=== PATIENT | female | born 1970 | race Hispanic/Latino ===

== ENCOUNTER 2016-09-11 09:52 | Emergency (ER) | payer OTHER ==
[2016-09-11 10:39] LABS: Basophils % (Auto) 0.5 % (0.0-1.8); Eosinophils % (Auto) 2.1 % (0.0-4.3); Hematocrit 38.3 % (30.3-42.9); Hemoglobin 13.1 gm/dl (10.1-14.3); Mean Corpuscular HGB Conc 34 % (30-34); Mean Corpuscular Hemoglobin 27 pg (28-32); Mean Corpuscular Volume 80 fl (79-97); Platelet Count 288 K/mm3 (140-440); Red Cell Distribution Width 13.3 % (13.2-15.2); White Blood Count 6.5 K/mm3 (4.5-11.0)
[2016-09-11 10:52] LABS: Alanine Aminotransferase 10 units/L (7-56); Albumin 3.8 g/dL (3.9-5); Albumin/Globulin Ratio 1.5 %; Alkaline Phosphatase 58 units/L (35-129); Bilirubin,Total 0.5 mg/dL (0.1-1.2); Blood Urea Nitrogen 22 mg/dL (7-17); Calcium 8.4 mg/dL (8.4-10.2); Carbon Dioxide 38 mmol/L (22-30); Glucose 119 mg/dL (65-100); Lipase 33 units/L (13-60); Total Protein 6.4 g/dL (6.3-8.2)
[2016-09-11 10:53] LABS: Anion Gap 15 mmol/L; Chloride 81.5 mmol/L (98-107); Sodium 132 mmol/L (137-145)
[2016-09-11 10:55] LABS: Potassium 2.3 mmol/L (3.6-5.0)
[2016-09-11] MEDS: K-DUR PO ONE ×2 (11:09→11:30)
[2016-09-11] MEDS ORDERED: NACL 0.9% 1000 ML 1,000 ML IV ONE (11:15)
[2016-09-11] MEDS ORDERED: MORPHINE IV ONE (11:15)
[2016-09-11] MEDS ORDERED: VALIUM IV ONE ×2 (11:15→14:46)
[2016-09-11] MEDS ORDERED: ZOFRAN IV ONE (11:15)
[2016-09-11] MEDS ORDERED: SUBLIMAZE IV ONE ×3 (11:17→14:46)
[2016-09-11] MEDS: KCL 10MEQ/100ML 100 ML IV SCH ×2 (11:37→12:38)
--- NOTE | 2016-09-11 13:01 | Emergency Department Report ---
HPI - General Chief Complaint: Abdominal Pain Time Seen by Provider: 09/11/16 10:13 - HPI HPI: The patient is a 46-year-old female with a history of chronic vomiting, gastric ulcers, and chronic hypokalemia, who presents for evaluation of abdominal pain. The patient reports epigastric abdominal pain since this morning, constant since onset, 8 out of 10 in severity, burning in quality, associated with nausea and multiple episodes of nonbilious, nonbloody emesis. The patient denies fever, chills, night sweats, diarrhea, blood in the stool, dark tarry stool, dysuria, hematuria, flank pain, genital discharge, inability to pass flatus. ED Past Medical Hx - Past Medical History Previous Medical History?: Yes Hx Hypertension: Yes Hx CVA: Yes (x2) Additional medical history: hypokalemia. bleeding ulcer - Surgical History Past Surgical History?: Yes Additional Surgical History: x 2 - Social History Smoking Status: Current Every Day Smoker Substance Use Type: None - Medications Home Medications: Home Medications Medication Instructions Recorded Confirmed Last Taken Type AtorvaSTATin [Lipitor] 40 mg PO QPM 11/25/15 09/11/16 09/10/16 History Pantoprazole Sodium 40 mg PO QDAY 11/25/15 09/11/16 09/10/16 History Thiamine HCl [Vitamin B-1] 250 mg PO QDAY 11/25/15 09/11/16 09/10/16 History Aspirin [Aspirin TAB] 325 mg PO QDAY tablet 11/26/15 09/11/16 09/10/16 Rx HYDROcodone/APAP 5-325 [[place] 1 each PO Q6HR PRN #30 tablet 11/26/15 09/11/16 Rx 5-325 mg TAB] Sucralfate 1 gm PO Q6HR #1 mo 11/26/15 09/11/16 09/10/16 Rx amLODIPine [Norvasc] 10 mg PO DAILY #30 tablet 11/26/15 09/11/16 09/10/16 Rx Potassium Chloride [K-Dur] 10 meq PO QDAY #14 tablet 09/11/16 Unknown Rx Sertraline [Zoloft] 100 mg PO QDAY 09/11/16 09/11/16 09/10/16 History ED Review of Systems ROS: Stated complaint: N/V Other details as noted in HPI Constitutional: denies: fever ENT: denies: throat or neck pain Respiratory: denies: cough, shortness of breath Cardiovascular: denies: chest pain Endocrine: denies unexplained weight loss or gain Gastrointestinal: reports abdominal pain, nausea Genitourinary: denies: dysuria Musculoskeletal: denies: leg swelling Skin: denies: rash Neurological: denies: headache Hematological/Lymphatic: denies: easy bleeding or easy bruising Psych: denies sadness or hopelessness Physical Exam - Physical Exam Vital Signs: Vital Signs 09/11/16 09/11/16 09/11/16 10:01 10:02 10:05 Temperature 97.8 F Pulse Rate 76 75 Respiratory 16 11 L Rate Blood Pressure 126/69 126/69 126/69 O2 Sat by Pulse 100 100 100 Oximetry 09/11/16 09/11/16 09/11/16 10:07 10:09 10:13 Temperature Pulse Rate 83 73 Respiratory 14 12 16 Rate Blood Pressure 126/69 126/69 O2 Sat by Pulse 100 99 100 Oximetry 09/11/16 09/11/16 11:00 12:00 Temperature Pulse Rate 80 78 Respiratory 15 11 L Rate Blood Pressure 137/92 134/84 O2 Sat by Pulse 98 100 Oximetry Physical Exam: General: well-nourished, well-developed, no acute distress Head: Normocephalic, atraumatic Eyes: normal sclera ENT: Mucous membranes are pale and dry Neck: No neck stiffness, no cervical adenopathy Respiratory: Breath sounds equal bilaterally, no wheezing, rales, or rhonchi Cardio: S1 and S2 present, no murmurs, rubs, gallops, capillary refill is delayed Abdomen: Normoactive bowel sounds, soft abdomen, epigastric tenderness to palpation present, no rigidity, no guarding or rebound tenderness Chest WALL/Back: No tenderness to palpation of the chest wall, no CVA tenderness with percussion Musc: No pitting edema Skin: No rash Neuro: no facial drooping, normal speech Psych: Normal affect ED Course Vital Signs 09/11/16 09/11/16 09/11/16 10:01 10:02 10:05 Temperature 97.8 F Pulse Rate 76 75 Respiratory 16 11 L Rate Blood Pressure 126/69 126/69 126/69 O2 Sat by Pulse 100 100 100 Oximetry 0109/11/16 09/11/16 10:07 10:09 10:13 Temperature Pulse Rate 83 73 Respiratory 14 12 16 Rate Blood Pressure 126/69 126/69 O2 Sat by Pulse 100 99 100 Oximetry 09/11/16 09/11/16 11:00 12:00 Temperature Pulse Rate 80 78 Respiratory 15 11 L Rate Blood Pressure 137/92 134/84 O2 Sat by Pulse 98 100 Oximetry ED Medical Decision Making - Lab Data Result diagrams: 09/11/16 10:29 09/11/16 14:04 - Medical Decision Making The patient was seen and examined by myself. The patient is placed on a lamination builder and continuous pulse ox. On initial evaluation, the patient was found to be in no distress. Evaluation orders are placed. IV access is established and the patient is given 1 L normal saline fluid bolus and Zofran for nausea, and IV Valium for pain. Lab results revealed hypokalemia, and otherwise labs were non-concerning including WBC, hemoglobin, hematocrit, renal function, LFTs, lipase, and urinalysis. The patient is given a tablet of K Dur , and she was administered 20 mEq of IV potassium. The patient's potassium level was repeated and found to be above concerning level. The patient was reevaluated and reported that her symptoms were markedly improved. The patient is stable for discharge with outpatient follow-up. The patient is given follow-up and return instructions. The patient expressed understanding and agreed with the plan. The patient is discharged in stable condition. Critical care attestation.: If time is entered above; I have spent that time in minutes in the direct care of this critically ill patient, excluding procedure time. ED Disposition Clinical Impression: Abdominal pain, acute, epigastric, Dehydration, Hypokalemia Disposition: DISCHARGED TO HOME OR SELFCARE Is pt being admited?: No Does the pt Need Aspirin: No Condition: Stable Instructions: Abdominal Pain (ED), Hypokalemia (ED) Prescriptions: Potassium Chloride [K-Dur] 10 meq PO QDAY #14 tablet Referrals: PRIMARY CARE, [Primary Care Provider] - 3-5 Days Time of Disposition: 12:59
[2016-09-11 14:29] LABS: Anion Gap 12 mmol/L; BUN/Creatinine Ratio 27.14; Blood Urea Nitrogen 19 mg/dL (7-17); Calcium 7.9 mg/dL (8.4-10.2); Carbon Dioxide 37 mmol/L (22-30); Chloride 85.5 mmol/L (98-107); Glucose 93 mg/dL (65-100); Sodium 132 mmol/L (137-145)
[2016-09-11 14:34] LABS: Potassium 2.8 mmol/L (3.6-5.0)
[2016-09-11 16:34] VITALS: BP 112/75
--- NOTE | 2016-09-11 19:00 | Admit Criteria Form ---
Admission Criteria Documentation: HYPONATREMIA; HYPERNATREMIA; HYPOKALEMIA; HYPERKALEMIA; HYPOCALCEMIA; HYPERCALCEMIA Clinical Indications for Inpatient Care (Place 'X' for any and all applicable criteria): Ongoing inpatient care may be indicated for ANY ONE of the following [G](1)(2)(3 )(5): [ ]I. Hyponatremia with ANY ONE of the following: [ ]a) Sodium less than 130 mEq/L (mmol/L) (new) (6)(22) [ ]b) Sodium less than 135 mEq/L (mmol/L) with ANY ONE of the following: [ ]i) Severe medical etiology requiring inpatient management (eg, heart failure, hypovolemia) [ ]ii) Altered mental status [ ]iii) Seizures [ ]II. Hypernatremia with ANY ONE of the following: [ ]a) Sodium greater than 155 mEq/L (mmol/L) [ ]b) Sodium greater than 150 mEq/L (mmol/L) with ANY ONE of the following: [ ] i) Altered mental status [ ]ii) Seizures [ ]iii) Severe medical etiology (eg, hypovolemia, diabetes insipidus) [ ]iv) Severe weakness [ ]v) Severe medical etiology (eg, hemolysis, infection, drug overdose) [ X]III. Hypokalemia with ANY ONE of the following: [ X]a) Potassium less than 2.5 mEq/L (mmol/L) despite outpatient and emergency treatment [ ]b) Potassium less than 3.0 mEq/L (mmol/L) with ANY ONE of the following: [ ]i) Weakness [ ]ii) Cardiac abnormality (eg, arrhythmia, conduction disturbance) [ ]iii) Cardiac ischemia [ ]iv) Ileus [ ]v) Ongoing medical cause requiring inpatient management. ( e.g., acute renal wasting, SIADH) [ ]vi) Other severe symptoms [ ] IV. Hyperkalemia with ANY ONE of the following: [ ]a) Potassium greater than 6.5 mEq/L (mmol/L) [ ]b) Potassium greater than 5 mEq/L (mmol/L) with ANY ONE of the following: [ ]i) Severe ECG findings [H] [ ]ii) Acute worsening of renal failure (creatinine greater than 2.5 mg/dL (221 micromoles/L) or significant elevation for age and size) [ ] V. Hypocalcemia with ANY ONE of the following: [ ]a) Calcium less than 7 mg/dL (1.75 mmol/L) despite outpatient and emergency treatment(19) [ ]b) Calcium less than 8 mg/dL (2 mmol/L) with significant symptoms or findings; examples include: [ ]i) Cardiac abnormality (eg, arrhythmia or conduction disturbance) [ ]ii) Altered mental status [ ]iii) Seizures [ ]iv) Breathing difficulty [ ]v) Muscle spasms [ ]. Hypercalcemia with ANY ONE of the following: [ ]a) Calcium greater than 14 mg/dL (3.5 mmol/L) [ ]b) Calcium greater than 12 mg/dL (3 mmol/L) with ANY ONE of the following: [ ]i) Significant dehydration or hypovolemia as indicated by ANY ONE of the following(2): [ ]1. Clinically significant dehydration as indicated by ANY ONE of the following: [ ]A. Acute loss of weight from baseline (5% of body weight in adults, 9% in pediatric patients) [ ]B. Hemodynamic instability [ ]C. Acute renal failure [ ]D. Serum sodium greater than 150 mEq/L (mmol/L) [ ]2) Dehydration that is persistent indicated by ALL of the following: [ ]A. Oral rehydration therapy not tolerated or insufficient to adequately correct dehydration [ ]B. Appropriate intravenous treatment (eg, fluids ) does not readily correct dehydration ie, after 12 to 24 hours of treatment) [ ]ii) Significant symptoms or findings; examples include: [ ]1) Altered mental status [ ]2) Cardiac abnormality (eg, arrhythmia, conduction disturbance) [ ]3) Cardiac abnormality (eg, arrhythmia, conduction disturbance) The original [employer] [facility] content created by [employer] has been revised. The portions of the content which have been revised are identified through the use of italic text or in bold, and [facility] [employer] has neither reviewed nor approved the modified material. All other unmodified content is copyright [employer] [facility] Please see references footnoted in the original [employer] [facility] edition 2016
== END 2016-09-11 16:28 | disposition home or self-care (01) ==
LOC: ED 09:52
DX: E86.0 Dehydration (principal); E87.6 Hypokalemia; R10.13 Epigastric pain; I10 Essential (primary) hypertension; I63.9 Cerebral infarction, unspecified; F17.200 Nicotine dependence, unspecified, uncomplicated; Z79.82 Long term (current) use of aspirin
CPT/HCPCS: 36415; 80048; 80053; 83690; 84703; 85025; 96361; 96365; 96375; 96376; 99284; J2405; J3010; J3360; J3480; J7030

== ENCOUNTER 2017-09-30 20:53 | Emergency (ER) | payer SELFPAY ==
[2017-09-30 21:35] VITALS: BP 119/77
[2017-09-30] MEDS ORDERED: MOTRIN PO ONE (23:55)
[2017-09-30] MEDS ORDERED: MOTRIN ONE (23:56)
--- NOTE | 2017-10-01 00:12 | Emergency Department Report ---
ED Laceration HPI - HPI Chief Complaint: Wound/Laceration Stated Complaint: LAC TO LT THUMB Time Seen by Provider: 09/30/17 23:16 Location: Upper Extremity Severity: mild Tetanus Status: Up to Date Laceration Symptoms: Yes Pain, No Foreign Body Sensation, No Numbness, No Weakness Other History: She is a 47-year-old female presents with her son complaining of laceration to the left thumb. Patient states she was making a condle when she caught herself on some glass. Patient states minimal bleeding bleeding was controlled after incident. Patient states this happened about 2 hours ago. She states that her tetanus vaccinations are up-to-date. She denies fever, chills,nausea or vomiting or any other problems. ED Review of Systems ROS: Stated complaint: LAC TO LT THUMB Other details as noted in HPI Constitutional: denies: chills, fever Eyes: denies: eye pain, eye discharge, vision change ENT: denies: ear pain, throat pain Respiratory: denies: cough, shortness of breath, wheezing Cardiovascular: denies: chest pain, palpitations Endocrine: no symptoms reported Gastrointestinal: denies: abdominal pain, nausea, diarrhea Genitourinary: denies: urgency, dysuria, discharge Musculoskeletal: denies: back pain, joint swelling, arthralgia Skin: denies: rash, lesions, pruritus Neurological: denies: headache, weakness, paresthesias Psychiatric: denies: anxiety, depression Hematological/Lymphatic: denies: easy bleeding, easy bruising ED Past Medical Hx - Past Medical History Hx Hypertension: Yes Hx CVA: Yes (x2) Additional medical history: hypokalemia. bleeding ulcer - Surgical History Additional Surgical History: x 2, abd surgery - Social History Smoking Status: Current Every Day Smoker Substance Use Type: Prescribed - Medications Home Medications: Home Medications Medication Instructions Recorded Confirmed Last Taken Type AtorvaSTATin [Lipitor] 40 mg PO QPM 11/25/15 09/11/16 09/10/16 History Pantoprazole Sodium 40 mg PO QDAY 11/25/15 09/11/16 09/10/16 History Thiamine HCl [Vitamin B-1] 250 mg PO QDAY 11/25/15 09/11/16 09/10/16 History Aspirin [Aspirin TAB] 325 mg PO QDAY tablet 11/26/15 09/11/16 09/10/16 Rx Sucralfate 1 gm PO Q6HR #1 mo 11/26/15 09/11/16 09/10/16 Rx amLODIPine [Norvasc] 10 mg PO DAILY #30 tablet 11/26/15 09/11/16 09/10/16 Rx HYDROcodone/APAP 5-325 [[place] 1 each PO Q6HR PRN #10 tablet 09/11/16 Unknown Rx 5-325 mg TAB] Ondansetron [Zofran TAB] 4 mg PO Q8HR PRN #14 tablet 09/11/16 Unknown Rx Potassium Chloride [K-Dur] 10 meq PO QDAY #14 tablet 09/11/16 Unknown Rx Promethazine [Phenergan TAB] 25 mg PO Q6HR PRN #20 tab 09/11/16 Unknown Rx Sertraline [Zoloft] 100 mg PO QDAY 09/11/16 09/11/16 09/10/16 History Acetaminophen/Codeine [Tylenol 1 tab PO Q6H PRN #10 tab 10/01/17 Unknown Rx /Codeine # 3 tab] Cephalexin [Keflex] 500 mg PO Q12HR #10 cap 10/01/17 Unknown Rx Laceration Physical Exam - Exam General: Vital signs noted. No distress. Alert and acting appropriately. Laceration Location: Upper Extremity (left thumb anterior) Laceration Exam: Yes Normal Distal CMS, No Foreign Body, No Exposed Tendon, Vessel, or Nerve, No Tendon Injury ED Course Vital Signs 09/30/17 21:32 Temperature 98.2 F Pulse Rate 94 H Respiratory 18 Rate Blood Pressure 119/77 O2 Sat by Pulse 98 Oximetry - Laceration /Wound Repair Left Anterior Palm Finger Wound Location: upper extremity Wound Length (cm): 1 Wound's Depth, Shape: superficial, linear Wound Explored: clean Irrigated w/ Saline (ccs): 100 Betadine Prep?: Yes Anesthesia: 1% Lidocaine Volume Anesthetic (ccs): 4 Wound Repaired With: Steri-strips, Dermabond Number of Sutures: 0 Layer Closure?: No Sterile Dressing Applied?: Yes ED Medical Decision Making - Medical Decision Making 47-year-old female presents thumb laceration. ED course: Patient received Motrin for pain. Laceration was 1 cm, minimal, not deep, linear 1 was cleaned with Betadine. Dermabond used to close the laceration. Steri- Strips applied. Discussed the patient take antibiotics as prescribed Discussed the keep wound dry. Discussed follow-up with primary care physician in 3-5 days. Vital signs are stable, patient is in no acute distress. Critical care attestation.: If time is entered above; I have spent that time in minutes in the direct care of this critically ill patient, excluding procedure time. ED Disposition Clinical Impression: Laceration of thumb without damage to nail Qualifiers: Encounter type: initial encounter Foreign body presence: without foreign body Laterality: left Qualified Code(s): S61.012A - Laceration without foreign body of left thumb without damage to nail, initial encounter Disposition: - TO HOME OR SELFCARE Is pt being admited?: No Does the pt Need Aspirin: No Condition: Stable Instructions: Finger Laceration (ED), Skin Adhesive Care (ED) Additional Instructions: Make sure to follow up with the primary care physician as discussed. Take all your medications as you've been prescribed. If you have any worsening symptoms or develop new symptoms please return to ED immediately. Prescriptions: Acetaminophen/Codeine [Tylenol /Codeine # 3 tab] 1 tab PO Q6H PRN #10 tab PRN Reason: Pain Cephalexin [Keflex] 500 mg PO Q12HR #10 cap Referrals: PRIMARY CARE, [Primary Care Provider] - 3-5 Days [facility] [Outside] - 3-5 Days [facility] [Outside] - 3-5 Days Forms: Accompanied Note, Work/School Release Form(ED) Time of Disposition: 04:15
[2017-10-01] MEDS ORDERED: PEPCID PO ONE (00:33)
== END 2017-10-01 00:40 | disposition home or self-care (01) ==
LOC: ED 20:53
DX: S61.219A Laceration without foreign body of unspecified finger without damage to nail, initial encounter (principal); I10 Essential (primary) hypertension; F17.200 Nicotine dependence, unspecified, uncomplicated; Z86.73 Personal history of transient ischemic attack (TIA), and cerebral infarction without residual deficits; Z79.82 Long term (current) use of aspirin; W25.XXXA Contact with sharp glass, initial encounter; Y93.89 Activity, other specified; Y92.89 Other specified places as the place of occurrence of the external cause; Y99.8 Other external cause status
CPT/HCPCS: 99283